=== PATIENT | female | born 1970 | race Asian ===

== ENCOUNTER 2018-03-19 23:13 | Emergency (ER) | payer OTHER ==
[~2018-03-19] VITALS: Ht 152.4 cm; Wt 59.0 kg
[2018-03-19 23:17] VITALS: BP 139/99
[2018-03-19] MEDS: SILVER SULFADIAZINE 1% 50 GM JAR TP ONE (23:33)
[2018-03-19 23:35] VITALS: BP 139/99
== END 2018-03-19 23:35 | disposition home or self-care (01) ==
LOC: MED 23:13
DX: S60.821A Blister (nonthermal) of right wrist, initial encounter (principal); T31.0 Burns involving less than 10% of body surface; X10.2XXA Contact with fats and cooking oils, initial encounter; Y93.89 Activity, other specified; Y92.89 Other specified places as the place of occurrence of the external cause; Y99.8 Other external cause status
CPT/HCPCS: 16020; 99284

== ENCOUNTER 2018-11-23 21:14 | Emergency (ER) | payer OTHER ==
[~2018-11-23] VITALS: Ht 152.4 cm; Wt 54.4 kg
[2018-11-23 21:23] VITALS: BP 143/89
--- NOTE | 2018-11-23 21:26 | NUR ---
TO LOBBY A/W BED VIA WHEELCHAIR
--- NOTE | 2018-11-23 21:57 | NUR ---
48/F PRESENTS TO ED WITH DAUGHTER, PREFFERED FOR [employer]OXAN[employer] TRANSLATION. C/O LOWER BACK PAIN, X1 WEEK; EXACERBATED BY MOVEMENT. PT ALSO C/O CHRONIC R SIDED BODY PAIN (R SHOULDER TO RLE) X1 YEAR AND L SHOULDER PAIN X1 YEAR. PT DENIES DIRECT INJURY/TRAUMA, DENIES HEAVY LIFTING. DENIES CP, SOB, N/V/D, CONSTIPATIN, DYSURIA. AOX4, SKIN NORMAL WARM AND DRY, RR EVEN AND UNLABORED. DENIES MED HX OR RX. OTC SALON PAS WITHOUT RELIEF.
--- NOTE | 2018-11-23 22:42 | NUR ---
PATIENT W/C ASSISTED TO THE BATHROOM.
--- NOTE | 2018-11-23 22:46 | NUR ---
PATIENT RETURN FROM BATHROOM. PT NOW SAFELY IN BED.
[2018-11-23] MEDS ORDERED: KETOROLAC 60 MG/2 ML VIAL IM ONE (23:20)
--- NOTE | 2018-11-23 23:35 | NUR ---
PT LAYING IN BED, RR EVEN AND UNLABORED. VSS. REPORTS LOWER BACK PAIN. ADMINISTERED TORADOL IM WITH EDUCATION. ALL NEEDS MET.
[2018-11-24 00:10] VITALS: BP 128/78
--- NOTE | 2018-11-24 00:10 | NUR ---
Patient discharged with v/s stable. Written and verbal after care instructions given and explained. Patient alert, oriented and verbalized understanding of instructions. Wheel Chair Assisted with to car. All questions addressed prior to discharge. ID band removed. Patient advised to follow up with PMD. Rx of MOTRIN AND NORCO given. Patient educated on indication of medication including possible reaction and side effects. Opportunity to ask questions provided and answered.
== END 2018-11-24 00:10 | disposition home or self-care (01) ==
LOC: MED 21:14
DX: M54.5 Low back pain (principal)
CPT/HCPCS: 81002; 81025; 96372; 99283; J1885

== ENCOUNTER 2020-05-13 15:40 | Emergency (ER) | payer OTHER, SELFPAY ==
[~2020-05-13] VITALS: Ht 12.7 cm; Wt 63.5 kg
[2020-05-13 15:52] VITALS: BP 143/79
--- NOTE | 2020-05-13 15:55 | NUR ---
Melvi curran in ED - 05/13/20 at 1623 by [facility] C/O COUGH, FEVER,WEBB, NECK PAIN X 2 DAYS. PMH: KELLIE
--- NOTE | 2020-05-13 16:00 | NUR ---
C/O COUGH, FEVER,WEBB, NECK PAIN 7/10 X 2 DAYS. PMH: DENIES
--- NOTE | 2020-05-13 16:30 | NUR ---
COVID SWAB COLLECTED.
[2020-05-13 17:01] VITALS: BP 143/79
--- NOTE | 2020-05-13 17:01 | NUR ---
Patient discharged with v/s stable. Written and verbal after care instructions given and explained. Patient alert, oriented and verbalized understanding of instructions. Ambulatory with steady gait. All questions addressed prior to discharge. ID band removed. Patient advised to follow up with PMD. Rx of Ibuprofen, Flexeril, Promethazine, Voltaren given. Patient educated on indication of medication including possible reaction and side effects. Opportunity to ask questions provided and answered.
--- NOTE | 2020-05-15 09:15 | NUR ---
Covid results received from lab. Results = Positive. Hard copy requested from lab and placed in infection controls mailbox.
== END 2020-05-13 17:01 | disposition home or self-care (01) ==
LOC: MED 15:40
DX: S16.1XXA Strain of muscle, fascia and tendon at neck level, initial encounter (principal); Z20.828 Contact with and (suspected) exposure to other viral communicable diseases; B34.9 Viral infection, unspecified; X58.XXXA Exposure to other specified factors, initial encounter; Y93.89 Activity, other specified; Y92.89 Other specified places as the place of occurrence of the external cause; Y99.8 Other external cause status
CPT/HCPCS: 99283; U0003

== ENCOUNTER 2021-02-20 23:00 | Emergency (ER) | payer OTHER, SELFPAY ==
[~2021-02-20] VITALS: Ht 152.4 cm; Wt 49.9 kg
[2021-02-20 23:04] VITALS: BP 139/88
[2021-02-20] MEDS ORDERED: ceFAZolin 1,000 MG VIAL IM ONE (23:40)
[2021-02-20] MEDS ORDERED: KETOROLAC 60 MG/2 ML VIAL IM ONE (23:40)
[2021-02-20] MEDS ORDERED: NAPR-54 PO (23:51)
[2021-02-20] MEDS ORDERED: CEPH500C16 PO (23:51)
--- NOTE | 2021-02-20 23:55 | NUR ---
51 YO/F BIB SELF ACCOMPANIED BY DAUGHTER W C/O R FOOT PAIN X 5 HOURS, SHARP NON-RADIATING 01/23, WORSENS W TOUCH. DENIES INJURY. REDNESS TO R FOOT NOTED. SKIN WARM AND DRY, +2 PEDAL PULSES, W CAP REFIL <3 SEC. PATIENT LAYING IN BED SUPINE, LOCKED IN LOWEST POSITION W X1 SIDERAIL UP. BREATHING EVEN AND UNLABORED. NAD NOTED, WILL CONTINUE TO MONITOR. VSS. DAUGHTER AT BEDSIDE. PMH:DENIES NKA
[2021-02-21 00:14] VITALS: BP 139/88
--- NOTE | 2021-02-21 00:14 | NUR ---
Patient discharged with v/s stable BY . Written and verbal after care instructions given and explained BY . Patient alert, oriented and verbalized understanding of instructions BY . Ambulatory with steady gait. All questions addressed prior to discharge BY . ID band removed. Patient advised to follow up with PMD BY . Rx of KEFLEX, NAPROSYN given BY . Patient educated on indication of medication including possible reaction and side effects BY . Opportunity to ask questions provided and answered BY .
== END 2021-02-21 00:14 | disposition home or self-care (01) ==
LOC: MED 23:00
DX: L03.115 Cellulitis of right lower limb (principal); Z79.899 Other long term (current) drug therapy
CPT/HCPCS: 96372; 99284; J0690; J1885

== ENCOUNTER 2023-03-20 07:41 | Emergency (ER) | payer OTHER ==
[~2023-03-20] VITALS: Ht 144.8 cm; Wt 54.4 kg
[~2023-03-20 07:41] MED LIST: CEPH500C16 PO; NAPR-54 PO
[2023-03-20 07:54] VITALS: BP 139/73; PULSE 79; RESP 18; TEMP 97.9; O2SAT 98
[2023-03-20 08:22] VITALS: O2SAT 98
[2023-03-20] MEDS ORDERED: KETOROLAC 30 MG/ML VIAL IM ONE (08:40)
[2023-03-20] MEDS ORDERED: LIDOCAINE 5% 1 EA PATCH TP ONE (08:40)
[2023-03-20] MEDS ORDERED: CYCLOBENZAPRINE 10 MG TAB PO ONE (08:40)
[2023-03-20] MEDS ORDERED: ACETAMINOPHEN 325 MG TAB PO ONE (08:40)
[2023-03-20] MEDS ORDERED: LIDO1ADH19 TP (09:53)
[2023-03-20] MEDS ORDERED: IBUP-2213 PO (09:53)
[2023-03-20] MEDS ORDERED: CYCL-711 PO (09:53)
[2023-03-20 10:00] VITALS: BP 154/85; PULSE 78; RESP 16; TEMP 97.8; O2SAT 100
== END 2023-03-20 09:58 | disposition home or self-care (01) ==
LOC: MED 07:41
DX: S29.012A Strain of muscle and tendon of back wall of thorax, initial encounter (principal); Z79.899 Other long term (current) drug therapy; Z79.2 Long term (current) use of antibiotics; Z79.1 Long term (current) use of non-steroidal anti-inflammatories (NSAID); X58.XXXA Exposure to other specified factors, initial encounter; Y92.89 Other specified places as the place of occurrence of the external cause; Y93.89 Activity, other specified; Y99.8 Other external cause status
CPT/HCPCS: 72072; 96372; 99284; J1885